=== PATIENT | female | born 2000 | race Caucasian/White ===

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

== ENCOUNTER 2021-10-30 10:01 | Emergency (ER) | payer OTHER ==
[~2021-10-30] VITALS: Ht 162.6 cm; Wt 60.4 kg
--- NOTE | 2021-10-30 10:56 | PHYS DOC ---
Past History Past Medical History: No Pertinent History, Anxiety, Depression (NOBLE PATEL APRN) Past Surgical History: No Surgical History (NOBLE PATEL APRN) Smoking: Non-smoker Alcohol Use: None Drug Use: None (NOBLE PATEL APRN) General Adult EDM: Chief Complaint: HIP PAIN HPI: HPI: Patient is a 21-year-old female presents to the emergency department today for left hip pain that she describes as a sharp pain. No treatment prior to arrival. 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 She states that the pain has been intermittent and usually quickly resolves. She states that the pain started yesterday and has not resolved. She reports that she had to undergo physical therapy for this pain at 16 years old. Patient denies any injuries or falls, loss of bowel or bladder, saddle anesthesias, numbness or tingling in her extremities. (NOBLE PATEL APRN) Review of Systems: Review of Systems: : See HPI Musculoskeletal: See HPI Neurologic: See HPI (NOBLE PATEL APRN) Current Medications: Current Meds: Current Medications Medications (Trade) Dose Ordered Sig/Geovanna Start Time Stop Time Status Last Admin Dose Admin Ketorolac Tromethamine (Toradol Im) 60 mg 1X ONCE 10/30/21 11:00 10/30/21 11:01 UNV Orphenadrine Citrate (Norflex) 60 mg 1X ONCE 10/30/21 11:00 10/30/21 11:01 UNV (NOBLE PATEL APRN) Allergies: Allergies: Allergies Coded Allergies Type Severity Reaction Last Updated Verified No Known Drug Allergies 03/01/18 No (NOBLE PATEL APRN) Physical Exam: PE: Constitutional: Well developed, well nourished, no acute distress, non-toxic appearance. [] HENT: Normocephalic, atraumatic Eyes: PERRL, EOMI, conjunctiva normal, no discharge. [] Neck: Normal range of motion, Cardiovascular normal peripheral perfusion Lungs & Thorax: Normal work of breathing Abdomen: Soft and flat Skin: Warm, dry, no erythema, no rash. [] Back: Normal range of motion Extremities: No tenderness, no cyanosis, no clubbing, ROM intact, no edema. Patient is able to move all 4 extremities equally Neurologic: Alert and oriented X 3, normal motor function, normal sensory function, no focal deficits noted. [] Psychologic: Affect normal, judgement normal, mood normal. [] (NOBLE PATEL APRN) Current Patient Data: Vital Signs: Vital Signs Date Time Temp Pulse Resp B/P (MAP) Pulse Ox O2 Delivery O2 Flow Rate FiO2 10/30/21 10:44 99.1 88 18 122/73 (89) 98 Room Air (NOBLE PATEL APRN) EKG: EKG: [] (NOBLE PATEL APRN) Radiology/Procedures: Radiology/Procedures: []PROCEDURE: HIP LEFT 2V WITH PELVIS EXAM: XR BILATERAL HIP (WITH OR WITHOUT PELVIS) LEFT 2 VIEWS 10/30/2021 10:50 AM CLINICAL INDICATION: Left hip pain COMPARISON: None available TECHNIQUE: AP view of the pelvis. AP and frog-leg lateral view of the left hip FINDINGS: No acute fracture. Alignment is normal. The hips are normal in morphology. Joint spaces are maintained. The pubic symphysis and sacroiliac joints are normal. Lower lumbar spine is normal. IMPRESSION: Normal radiograph of the left hip and pelvis. Electronically signed by: Rosamaria Bernal MD (10/30/2021 11:18 AM) [id number] DICTATED AND SIGNED BY: ROSAMARIA BERNAL MD DATE: 10/30/21 1116 CC: EMERGENCY,DEPARTMENT; NOBLE PATEL APRN; PCP,NO ~MTH0 0 (NOBLE PATEL APRN) Heart Score: C/O Chest Pain: N/A Risk Factors: Risk Factors: DM, Current or recent (<one month) smoker, HTN, HLP, family history of CAD, obesity. Risk Scores: Score 0 - 3: 2.5% MACE over next 6 weeks - Discharge Home Score 4 - 6: 20.3% MACE over next 6 weeks - Admit for Clinical Observation Score 7 - 10: 72.7% MACE over next 6 weeks - Early Invasive Strategies (NOBLE PATEL APRN) Course & Med Decision Making: Course & Med Decision Making Pertinent Labs and Imaging studies reviewed. (See chart for details) [] Patient presents to the emergency department for left hip pain. She denies any injuries. She states she is a defect that causes the muscles in her hips to be weak. X-ray was performed of patient's left hip and pelvis that showed no acute findings. Patient treated with anti-inflammatory medications and a muscle relaxer. Following treatment in the emergency department, patient was well to ambulate with a steady gait. Patient advised to continue taking anti-inflammatory medications at home and follow-up with her primary care provider. I discussed the patient's pain persists or gets worse, she may need to follow-up with her doctor and obtain an MRI. Patient may need to also go back to physical therapy. I discussed with patient all findings and diagnostic testing as well as the need to follow-up with PCP for further evaluation and treatment or return to the ER if any new or worsening symptoms. Strict return precautions were also discussed at length. Patient voiced understanding and agreement with the plan. Patient is hemodynamically stable at the time of disposition. (NOBLE PATEL APRN) Dragon Disclaimer: Dragon Disclaimer: This electronic medical record was generated, in whole or in part, using a voice recognition dictation system. (NOBLE PATEL APRN) Attending Co-Sign The patient was seen and interviewed as well as examined at the bedside. The chart was reviewed. The case was discussed. Agree with the plan of care. (JOEL KELLEY DO) Departure Departure: Impression: Primary Impression: Hip pain Disposition: HOME / SELF CARE / HOMELESS Condition: GOOD Referrals: PCP,DULCE (PCP) Patient Instructions: Hip Pain Additional Instructions: You are seen in the emergency department today for left hip pain. The x-ray showed no acute findings. You are treated with anti-inflammatory medication and muscle relaxer. Following treatment in the emergency department you are able to ambulate. Is continue to take anti-inflammatory medications at home like ibuprofen or naproxen. For severe pain you can take the pain medication as prescribed for you. This medication is hydrocodone and Tylenol in combination tablet. Please not take any additional Tylenol with this medication. This medication may cause drowsiness so do not take need to be alert, driving a vehicle or with alcohol. Please follow-up with your primary care provider tomorrow regarding your ER visit. As discussed, you may need an MRI and physical therapy referral if your pain persists or gets worse. Please return to the emergency department if you develop worsening of your pain, inability to ambulate weakness in your left leg, loss of bowel or bladder, injury, numbness or tingling in your groin or extremities. Scripts Hydrocodone Bit/Acetaminophen (HYDROCODONE-APAP 5-325 ) 1 Each Tablet 1 TAB PO PRN Q6HRS PRN for PAIN for 2 Days, #8 TAB 0 Refills Prov: NOBLE PATEL APRN 10/30/21 NOBLE PATEL APRN Oct 30, 2021 10:56 JOEL KELLEY DO Oct 31, 2021 06:48
[2021-10-30] MEDS ORDERED: KETOROLAC 60 MG/2 ML VIAL. IM ONE (11:00)
[2021-10-30] MEDS ORDERED: ORPHENADRINE CITRATE 60 MG/2 ML VIAL. IM ONE (11:00)
--- NOTE | 2021-10-30 11:20 | RAD ---
EXAM: XR BILATERAL HIP (WITH OR WITHOUT PELVIS) LEFT 2 VIEWS 10/30/2021 10:50 AM CLINICAL INDICATION: Left hip pain COMPARISON: None available TECHNIQUE: AP view of the pelvis. AP and frog-leg lateral view of the left hip FINDINGS: No acute fracture. Alignment is normal. The hips are normal in morphology. Joint spaces ar e maintained. The pubic symphysis and sacroiliac joints are normal. Lower lumbar spine is normal. IMPRESSION: Normal radiograph of the left hip and pelvis. Electronically signed by: Rosamaria Bernal MD (10/30/2021 11:18 AM) [id number]
[2021-10-30] MEDS ORDERED: HYDR-2155 PO (11:45)
[2021-10-30 12:00] VITALS: BP 112/70
== END 2021-10-30 12:19 | disposition home or self-care (01) ==
LOC: ER 10:01
DX: M25.552 Pain in left hip (principal)
CPT/HCPCS: 73502; 96372; 99284; J1885; J2360